=== PATIENT | female | born 1955 | race Caucasian/White ===

== ENCOUNTER → 2021-05-07 14:16 | Outpatient (CLI) | payer MEDICARE, OTHER, SELFPAY ==
--- NOTE | 2021-05-07 14:25 | DI.MG.S_ITS ---
BILATERAL DIGITAL SCREENING MAMMOGRAM 3D/2D WITH CAD: 05/07/2021 CLINICAL: Routine screening. Comparison is made to exams dated: 02/22/2015 mammogram, 01/27/2012 mammogram, and 04/23/2017 mammogram - out side. The tissue of both breasts is heterogeneously dense. This may lower the sensitivity of mammography. Current study was also evaluated with a Computer Aided Detection (CAD) system. No significant masses, calcifications, or other findings are seen in either breast. There has been no significant interval change. IMPRESSION: NEGATIVE There is no mammographic evidence of malignancy. A 1 year screening mammogram is recommended. This exam was interpreted at Station ID: [id number]. NOTE: For mammograms, a report in lay terms will be sent to the patient. Approximately 15% of breast malignancies will not be visualized mammographically. In the management of a palpable breast mass, a negative mammogram must not discourage biopsy of a clinically suspicious lesion. Electronically Signed By: Marina [email or web address]:05/07/2021 15:10:31 letter sent: Normal Exam ACR BI-RADS Category 1: Negative 3341F
== END ==
PROVIDERS: PCP Physician Assistant; Referring Provider Physician Assistant; Visit Provider Physician Assistant
DX: Z12.31 Encounter for screening mammogram for malignant neoplasm of breast (principal)
CPT/HCPCS: 77063; 77067

== ENCOUNTER → 2022-07-09 12:27 | Outpatient (CLI) | payer MEDICARE, OTHER, SELFPAY ==
--- NOTE | 2022-07-09 12:34 | DI.RAD.S_ITS ---
PROCEDURE: XR KNEE LT 3V INDICATIONS: LEFT KNEE PAIN TECHNIQUE: Three views of the knee were acquired. COMPARISON: None. FINDINGS: Bones: No acute fractures or dislocations. No suspicious bony lesions. Mild narrowing of the medial and lateral femorotibial compartment joint spaces with subchondral sclerosis and small marginal osteophytes. There is moderate to severe narrowing of the patellofemoral compartment joint space. Soft tissues: No joint effusion. No suspicious soft tissue calcifications. 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 Approved by: Johan Aguilar M.D. on 07/09/2022 at 16:18
--- NOTE | 2022-07-09 12:35 | DI.MG.S_ITS ---
BILATERAL DIGITAL DIAGNOSTIC MAMMOGRAM 3D/2D: 07/09/2022 CLINICAL: Mastodynia vs possible lump. Comparison is made to exams dated: 05/07/2021 mammogram - [facility], 04/23/2017 mammogram, and 02/22/2015 mammogram - out side. Both breasts are heterogeneously dense, which may obscure small masses (category c / 51-75% glandular tissue). No significant masses, calcifications, or other findings are seen in either breast. There has been no significant interval change. IMPRESSION: INCOMPLETE: NEEDS ADDITIONAL IMAGING EVALUATION There is no mammographic abnormality seen in the left breast to correspond with the palpable abnormality, however, targeted ultrasound of the left breast is recommended and will be performed immediately following this exam. Based on the Tyrer Cuzick model (a risk assessment model) the patient's lifetime risk is 6.8% and her 10 year risk is 3.4%. According to the ACR, ACS, and NCCN guidelines, an annual breast MRI exam along with mammogram is recommended if the patient's lifetime risk is 20% or greater. This exam was interpreted at Station ID: [id number]. NOTE: For mammograms, a report in lay terms will be sent to the patient. Approximately 15% of breast malignancies will not be visualized mammographically. In the management of a palpable breast mass, a negative mammogram must not discourage biopsy of a clinically suspicious lesion. Electronically Signed By: Rosalina madrid/:07/09/2022 13:49:51 ACR BI-RADS Category 0: Incomplete 3340F
--- NOTE | 2022-07-09 12:35 | DI.US.S_ITS ---
LIMITED ULTRASOUND OF LEFT BREAST AND AXILLA: 07/09/2022 CLINICAL: Palpable left axilla lump and focal pain. Comparison is made to exams dated: 07/09/2022 mammogram, 05/07/2021 mammogram - [facility], 04/23/2017 mammogram, 02/22/2015 mammogram, and 01/27/2012 mammogram - out side. Color flow ultrasound of the left breast axilla was performed on the areas of interest. Cano scale images of the real-time examination were reviewed. The left axilla was interogated and normal appearing lymph nodes are visualized. IMPRESSION: BENIGN No left axillary adenopathy. There is no sonographic evidence of malignancy. There is no mammographic or sonographic abnormality seen in the left breast to correspond with the palpable abnormality, however, clinical followup is recommended. Return to annual mammogram screening schedule is recommended. This exam was interpreted at Station ID: [id number]. Electronically Signed By: Rosalina Villafana M.D. lk/:07/09/2022 14:04:26 letter sent: Clinical Evaluation Ultrasound BI-RADS: 2 Benign
== END ==
PROVIDERS: PCP Physician Assistant; Referring Provider Physician Assistant; Visit Provider Physician Assistant
DX: N64.4 Mastodynia (principal); M25.562 Pain in left knee; M17.12 Unilateral primary osteoarthritis, left knee; R92.2 Inconclusive mammogram
CPT/HCPCS: 73562; 76882; 77066; G0279